=== PATIENT | female | born 2000 ===

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

== ENCOUNTER 2018-01-01 05:30 | Day surgery (SDC) | payer OTHER | END 2018-01-01 14:40 | disposition home or self-care (01) | LOC: CIR.AMB 05:30 | DX: K80.10 Calculus of gallbladder with chronic cholecystitis without obstruction (principal) ==

== ENCOUNTER 2019-04-22 10:38 | Emergency (ER) | payer OTHER ==
[~2019-04-22] VITALS: Ht 160 cm; Wt 63.5 kg
[2019-04-22] MEDS ORDERED: IBU800 MG PO (14:29)
[2019-04-22] MEDS ORDERED: PERCOCET 5-3251 EACH PO (14:29)
== END 2019-04-22 15:02 | disposition home or self-care (01) ==
LOC: ER 10:38
DX: K04.7 Periapical abscess without sinus (principal)

== ENCOUNTER 2021-10-13 11:06 | Emergency (ER) | payer OTHER ==
[~2021-10-13] VITALS: Ht 162.6 cm; Wt 68.0 kg
[~2021-10-13 11:06] MED LIST: IBU800 MG PO; PERCOCET 5-3251 EACH PO
== END 2021-10-13 16:01 | disposition home or self-care (01) ==
LOC: ER 11:06
DX: N20.1 Calculus of ureter (principal)

== ENCOUNTER 2021-10-18 07:49 | Outpatient (CLI) | payer OTHER | END 2021-10-18 07:59 | disposition home or self-care (01) | LOC: LAB 07:49 | PROVIDERS: ATTEND Urology | DX: N20.1 Calculus of ureter (principal); Z20.828 Contact with and (suspected) exposure to other viral communicable diseases ==

== ENCOUNTER 2021-10-26 08:44 | Day surgery (SDC) | payer OTHER ==
[~2021-10-26 08:44] MED LIST changes: +TAMSULOSIN HCL0.4 MG PO; +TRAMAD PO
== END 2021-10-26 17:20 | disposition home or self-care (01) ==
LOC: CIR.AMB 08:44
PROVIDERS: ATTEND Urology
DX: N20.1 Calculus of ureter (principal); Z20.822 Contact with and (suspected) exposure to COVID-19

== ENCOUNTER 2021-11-01 10:43 | Outpatient (CLI) | payer OTHER | END 2021-11-01 10:54 | disposition home or self-care (01) | LOC: RAD 10:43 | PROVIDERS: ATTEND Urology | DX: N20.0 Calculus of kidney (principal) ==

== ENCOUNTER 2021-11-10 08:41 | Outpatient (CLI) | payer OTHER | END 2021-11-10 08:49 | disposition home or self-care (01) | LOC: LAB 08:41 | PROVIDERS: ATTEND Urology | DX: N30.00 Acute cystitis without hematuria (principal) ==

== ENCOUNTER 2021-12-27 11:57 | Outpatient (CLI) | payer OTHER | END 2021-12-27 12:39 | disposition home or self-care (01) | LOC: LAB 11:57 | PROVIDERS: ATTEND Urology | DX: N30.00 Acute cystitis without hematuria (principal) ==

== ENCOUNTER 2022-01-03 09:23 | Outpatient (CLI) | payer OTHER | END 2022-01-03 10:24 | disposition home or self-care (01) | LOC: RAD 09:23 | PROVIDERS: ATTEND Urology | DX: N20.0 Calculus of kidney (principal) ==

== ENCOUNTER → 2022-12-04 07:04 | Outpatient (CLI) | payer OTHER | END | disposition home or self-care (01) | LOC: LAB 07:04 | PROVIDERS: ATTEND Surgery | DX: E55.9 Vitamin D deficiency, unspecified (principal); I10 Essential (primary) hypertension; D64.9 Anemia, unspecified; D68.9 Coagulation defect, unspecified; N39.0 Urinary tract infection, site not specified; E11.10 Type 2 diabetes mellitus with ketoacidosis without coma; E04.1 Nontoxic single thyroid nodule; E78.2 Mixed hyperlipidemia ==

== ENCOUNTER 2022-12-04 07:46 | Outpatient (CLI) | payer OTHER | END 2022-12-04 07:50 | disposition home or self-care (01) | LOC: SONOGRAMA 07:46 | PROVIDERS: ATTEND Surgery | DX: N60.11 Diffuse cystic mastopathy of right breast (principal); N60.12 Diffuse cystic mastopathy of left breast ==

== ENCOUNTER → 2023-01-25 | Outpatient (CLI) | payer OTHER | END | disposition home or self-care (01) | LOC: PPH VACUNA 08:53 | DX: Z23 Encounter for immunization (principal) ==

== ENCOUNTER 2023-05-09 10:11 | Outpatient (CLI) | payer OTHER ==
[2023-05-09 11:14] LABS: HEMATOCRIT 38.5 % (36.0-45.00); HEMOGLOBIN 13.5 g/dL (12.0-15.00); MEAN CELL VOLUME 86.2 fL (80.00-100.00); MEAN CORPUSCULAR HEMOGLOBIN 30.2 pg (27.00-32.0); PLATELET COUNT 375 K/uL (150-450); RED BLOOD COUNT 4.47 M/uL (4.00-6.00); RED CELL DISTRIBUTION WIDTH 12.6 % (11.5-14.5)
[2023-05-09 11:17] LABS: ERYTHROCYTE SEDIMENTATION RATE 2 mm/hr
[2023-05-09 11:18] LABS: URINE APPEARANCE Clear; URINE BILIRRUBIN Negative (NEGATIVE); URINE BLOOD Negative; URINE COLOR Yellow; URINE GLUCOSE Negative (NEGATIVE); URINE LEUKOCYTE Negative; URINE NITRATE Negative; URINE PROTEIN Negative (NEGATIVE); URINE UROBILINOGEN 0.2 E.U./dl
[2023-05-09 11:19] LABS: URINE BACTERIA 127.2 uL (0.0-1933); URINE EPITHELIAL CELLS 5.4 uL (0.0-38.8); URINE RBC 5.1 uL (0.0-20.8); URINE WBC 6.6 uL (0.0-23.2)
[2023-05-09 11:53] LABS: ALBUMIN 4.3 gm/dL (3.4-5.0); ALKALINE PHOSPHATASE 46 U/L (50-136); ALT/SGPT 22 U/L (12-78); ANION GAP 7 (10.0-20.0); AST/SGOT 13 U/L (15-37); BILIRUBIN TOTAL 0.47 mg/dL (0.3-1.2); BLOOD UREA NITROGEN 10 mg/dL (7-18); BUN CREA RATIO 16 (7.0-25.0); CALCIUM 9.3 mg/dL (8.5-10.1); CARBON DIOXIDE 27 mEq/L (21-32); CHLORIDE 106 mmol/L (98-107); CHOL HDL RATIO 3.1 (0-5.0); CHOLESTEROL 141 mg/dL (0-200); CREATININE SERUM 0.61 mg/dL (0.55-1.02); FREE TRIODOTIRONINE 3.15 pg/ml (2.18-3.98); GLOBULINA 3.2 G/DL (2.4-3.5); GLUCOSE FASTING 94 mg/dL (65-100); HDL 45 mg/dl (40-60); LDL 70 mg/dl (0-130); OSMOLALITY SERUM 271 MOSM/KG (275-295); POTASSIUM 4.09 mEq/L (3.5-5.1); SODIUM 136 mmol/L (136-145); T4 TOTAL 9.51 UG/DL (4.8-13.9); TOTAL PROTEIN 7.5 gm/dL (6.4-8.2); TRIGLYCERIDES 128 mg/dL (0-150); VLDL 25 (0-39)
[2023-05-09 12:03] LABS: C-REACTIVE PROTEIN < 0.29 MG/DL (0.00-0.29)
== END 2023-05-09 10:25 | disposition home or self-care (01) ==
LOC: LAB 10:11
PROVIDERS: ATTEND Internal Medicine
DX: E78.9 Disorder of lipoprotein metabolism, unspecified (principal); Z80.3 Family history of malignant neoplasm of breast; J06.9 Acute upper respiratory infection, unspecified; E55.9 Vitamin D deficiency, unspecified; Z13.220 Encounter for screening for lipoid disorders; Z13.29 Encounter for screening for other suspected endocrine disorder

== ENCOUNTER 2023-05-10 13:45 | Outpatient (CLI) | payer OTHER | END 2023-05-10 13:52 | disposition home or self-care (01) | LOC: SONOGRAMA 13:45 | PROVIDERS: ATTEND Surgery | DX: N60.11 Diffuse cystic mastopathy of right breast (principal); N60.12 Diffuse cystic mastopathy of left breast ==

== ENCOUNTER 2023-05-17 14:55 | Outpatient (CLI) | payer OTHER | END 2023-05-17 15:04 | disposition home or self-care (01) | LOC: TOM 14:55 | PROVIDERS: ATTEND Otolaryngology Otology & Neurotology | DX: J34.3 Hypertrophy of nasal turbinates (principal) ==